=== PATIENT | female | born 1965 | race Caucasian/White ===

== ENCOUNTER 2017-01-12 20:26 | Emergency (ER) | payer OTHER ==
--- NOTE | ~2017-01-12 | CT4 ---
[facility] A Service of [facility] / [facility] RADIOLOGY TEXT RESULTS PATIENT: DADA SLAUGHTER LOCATION: SED : 65 UNIT #: [id number] AGE: [address]: Maynor Canada MD SEX: F ORDER DR: [id number] [place] [id number] E MR#: [id number] Acc #: [id number] NAME: DADA SLAUGHTER. : 1965 SEX: F STUDY DATE/TIME: 01/12/2017 20:52 UNIT: SED ROOM: STUDY DESCRIPTION: CT Abd and Pelv Wo Cont Attending Physician: Maynor Canada M.D. Ordering Physician: Staff Doctor Not On Primary Care Physician: Susan Colorado R.N. MEDICAL IMAGING REPORT This report is preliminary unless electronic signature is present. EXAM CT of abdomen and pelvis without contrast. DATE OF EXAM 01/12/2017 HISTORY Left lower back pain for 3 days. TECHNIQUE NOTE: This CT exam was performed with one or more of the following radiation dose reduction techniques: automatic exposure control, adjustment of mA and/or kV according to patient size, and iterative reconstruction. FINDINGS CT abdomen and pelvis was performed without contrast. CT ABDOMEN: 2 mm nonobstructing stone in the lower pole right kidney. No additional renal calculi. No hydronephrosis or perinephric stranding. The liver, gallbladder, spleen, pancreas, left kidney, and adrenal glands are normal. Normal caliber abdominal aorta. No ascites. No bowel dilatation. There is a small umbilical hernia containing fat. CT PELVIS: No bladder calculi. The uterus and adnexa are unremarkable. No free fluid or inflammatory stranding. No bowel dilatation. Normal appendix. IMPRESSION 1. No acute findings. 2. 2 mm nonobstructing stone in the lower pole of the right kidney. 3. No urinary obstruction or bowel obstruction. 4. Normal appendix. [facility] A Service of [facility] / [facility] RADIOLOGY TEXT RESULTS PATIENT: DADA SLAUGHTER LOCATION: SED : 65 UNIT #: [id number] AGE: [address]: Maynor Canada MD SEX: F ORDER DR: 5. Small umbilical hernia containing fat. No bowel herniation. Dictated by... Tony Roberts M.D. THIS IS AN ELECTRONICALLY VERIFIED REPORT Tony Roberts M.D. at 01/12/2017 11:29 PM CHANDU/lisa TD: 01/12/2017 22:51 JOB #: [id number] MEDICAL IMAGING REPORT Page 1 of 1
[~2017-01-12 20:26] MED LIST: ACETAMINOPHEN PO; ADDERALL; ANAPROX DS PO; ASPIRIN PO; BACTRIM DS TABL1 TA1 PO; CIPRO PO; CLEOCIN PO; EXCEDRIN EXTRA1 TAB PO; EXCEDRIN GELTAB1 TA1; EXCEDRIN GELTAB1 TA1 PO; GABAPENTIN600 MG PO; HCTZ PO; IBUPROFEN800 MG; IBUPROFEN800 MG PO; KEFLEX500 MG PO; MEDROL4 MG/DOSE- PO; METOPROLOL SUCC50 MG PO; METOPROLOL TAR25 MG PO; NEURONTIN300 MG PO; NO MEDICATIONS; SUDAFED PO; TOPROL XL PO; TRIAMTERENE/HCTZ PO; ULTRAM PO; VIBRAMYCIN100 M1 PO; VOLTAREN75 MG PO
[2017-01-12 20:45] LABS: URINE SOURCE CLEAN CATCH
[2017-01-12 20:47] LABS: URINE APPEARANCE CLEAR; URINE BILIRUBIN NEG (NEG); URINE BLOOD TRACE-INTACT (NEG); URINE COLOR YELLOW; URINE GLUCOSE NEG (NORM); URINE KETONE NEG (NEG); URINE LEUKOCYTE ESTERASE NEG (NEG); URINE NITRATE NEG (NEG); URINE PROTEIN NEG (NEG); URINE SPECIFIC GRAVITY 1.015 (1.003-1.035); URINE UROBILINOGEN 0.2 MG/DL (NORM)
[2017-01-12 20:49] LABS: MICRO INDICATED? YES
[2017-01-12 20:49] LABS: BASOPHIL% 0.4 % (0-2.5); EOSINOPHIL# 0.2 X10e3 (0-0.7); EOSINOPHIL% 3.5 % (0.0-7.0); HEMATOCRIT 41.2 % (35.0-45.0); HEMOGLOBIN 13.9 gm/dL (12.0-16.0); LYMPHOCYTE# 3.4 X10e3 (1.0-3.5); LYMPHOCYTE% 47.3 % (17.0-45.0); MEAN CELL VOLUME 87.2 FL (83-96); MEAN CORPUSCULAR HEMOGLOBIN 29.4 PG (28-34); MEAN CORPUSCULAR HGB CONC 33.7 g/dL (30-36); MEAN PLATELET VOLUME 6.7 FL (6.5-11.5); MONOCYTE# 0.5 X10e3 (0-1.0); MONOCYTE% 6.5 % (3.0-12.0); NEUTROPHIL% 42.3 % (40-75); PLATELET COUNT 389 X10e3 (140-420); RED BLOOD COUNT 4.72 X10e (3.90-5.30); RED CELL DISTRIBUTION WIDTH 14.6 % (11.0-15.5); WHITE BLOOD COUNT 7.2 X10e3 (4.0-10.5)
[2017-01-12 20:51] LABS: CULTURE INDICATED? NO; URINE BACTERIA NEG (NEG); URINE SQUAMOUS EPITHELIAL CELL MODERATE /[HPF]; URINE WBC 0-2 /[HPF] (0-5)
[2017-01-12 20:51] LABS: DIFF IND NO
[2017-01-12 20:57] LABS: AMPHETAMINE NEG (NEG); BARBITURATES NEG (NEG); BENZODIAZEPINES NEG (NEG); COCAINE NEG (NEG); MARIJUANA NEG (NEG); OPIATES NEG (NEG); TRICYCLIC ANTIDEPRESSANTS NEG (NEG); U METHADONE NEG (NEG)
[2017-01-12 21:02] LABS: BUN/CREATININE RATIO 21.66; CALCIUM SERUM 8.7 mg/dL (8.4-10.2); CREATININE SERUM 0.6 mg/dL (0.6-1.4); GLOM FILT RATE Estimated 105.5 mL/min (>60)
== END 2017-01-12 23:15 | disposition home or self-care (01) ==
LOC: SED 20:26
PROVIDERS: Emergency Medicine; Physician Assistant
DX: S39.012A Strain of muscle, fascia and tendon of lower back, initial encounter (principal); I10 Essential (primary) hypertension; F10.239 Alcohol dependence with withdrawal, unspecified; Z88.5 Allergy status to narcotic agent; Z88.0 Allergy status to penicillin; Z88.8 Allergy status to other drugs, medicaments and biological substances
CPT/HCPCS: 36415; 74176; 80048; 80307; 81003; 85025; 96374; 96375; 96376; 99284; G0480; J2270; J3360

== ENCOUNTER 2017-06-19 14:42 | Emergency (ER) | payer OTHER ==
[~2017-06-19] VITALS: Ht 160 cm; Wt 72.6 kg
[2017-06-19 16:16] LABS: BASOPHIL% 0.2 % (0-2.5); EOSINOPHIL# 0.3 X10e3 (0-0.7); EOSINOPHIL% 3.7 % (0.0-7.0); HEMATOCRIT 42.3 % (35.0-45.0); HEMOGLOBIN 14.7 gm/dL (12.0-16.0); LYMPHOCYTE# 2.2 X10e3 (1.0-3.5); LYMPHOCYTE% 23.6 % (17.0-45.0); MEAN CELL VOLUME 88.1 FL (83-96); MEAN CORPUSCULAR HEMOGLOBIN 30.6 PG (28-34); MEAN CORPUSCULAR HGB CONC 34.8 g/dL (30-36); MEAN PLATELET VOLUME 6.9 FL (6.5-11.5); MONOCYTE# 0.6 X10e3 (0-1.0); MONOCYTE% 6.5 % (3.0-12.0); NEUTROPHIL# 6.2 X10e3 (1.5-7.1); PLATELET COUNT 531 X10e3 (140-420); WHITE BLOOD COUNT 9.4 X10e3 (4.0-10.5)
[2017-06-19 16:18] LABS: DIFF IND NO
[2017-06-19 16:40] LABS: PROTHROMBIN TIME (PATIENT) 11.4 SECONDS (9.5-12.4)
[2017-06-19 16:46] LABS: BILIRUBIN, DIRECT 0.1 mg/dL (0.0-0.2); BILIRUBIN,INDIRECT 0.7 mg/dL (0.0-0.9); BILIRUBIN,TOTAL 0.8 mg/dL (0.2-2.0); BUN/CREATININE RATIO 17.5; CALCIUM SERUM 9.2 mg/dL (8.4-10.2); CREATININE SERUM 0.8 mg/dL (0.6-1.4); GLOM FILT RATE Estimated 84.8 mL/min (>60); POTASSIUM 3.8 mmol/L (3.5-5.1); PROTEIN TOTAL SERUM 7.9 g/dL (6.0-8.3)
[2017-06-19 16:47] LABS: PARTIAL THROMBOPLASTIN TIME 27.4 SECONDS (25.6-38.1)
== END 2017-06-19 17:27 | disposition home or self-care (01) ==
LOC: SED 14:42
PROVIDERS: Emergency Medicine
DX: K62.5 Hemorrhage of anus and rectum (principal); R04.0 Epistaxis; F90.9 Attention-deficit hyperactivity disorder, unspecified type; F17.200 Nicotine dependence, unspecified, uncomplicated; Z86.73 Personal history of transient ischemic attack (TIA), and cerebral infarction without residual deficits; Z88.0 Allergy status to penicillin; Z88.1 Allergy status to other antibiotic agents; Z88.8 Allergy status to other drugs, medicaments and biological substances; Z91.040 Latex allergy status; Z79.899 Other long term (current) drug therapy
CPT/HCPCS: 36415; 80048; 80076; 82270; 85025; 85610; 85730; 96361; 96374; 99283; C9113